=== PATIENT | female | born 1965 | race Two or more races ===

== ENCOUNTER 2020-10-17 08:08 | Emergency (ER) | payer OTHER ==
[~2020-10-17] VITALS: Ht 160 cm; Wt 68.5 kg
[2020-10-17] MEDS ORDERED: TOPROL XL50 M1 (08:28)
[2020-10-17] MEDS ORDERED: CRESTOR5 MG (08:28)
[2020-10-17] MEDS ORDERED: COZAAR50 MG (08:28)
[2020-10-17] MEDS ORDERED: ZITHROMAX500 MG PO (10:51)
[2020-10-17] MEDS ORDERED: TUSSIN DM SYRU118 ML PO (10:51)
[2020-10-17] MEDS ORDERED: TESSALON PERLE100 M1 PO (10:51)
== END 2020-10-17 11:21 | disposition home or self-care (01) ==
LOC: ER 08:08
DX: B34.9 Viral infection, unspecified (principal); Z03.818 Encounter for observation for suspected exposure to other biological agents ruled out

== ENCOUNTER 2021-05-21 19:08 | Emergency (ER) | payer OTHER ==
[~2021-05-21] VITALS: Ht 160 cm; Wt 71.7 kg
[~2021-05-21 19:08] MED LIST: COZAAR50 MG; CRESTOR5 MG; TESSALON PERLE100 M1 PO; TOPROL XL50 M1; TUSSIN DM SYRU118 ML PO; ZITHROMAX500 MG PO
== END 2021-05-21 23:14 | disposition home or self-care (01) ==
LOC: ER 19:08
DX: S83.92XA Sprain of unspecified site of left knee, initial encounter (principal); W01.0XXA Fall on same level from slipping, tripping and stumbling without subsequent striking against object, initial encounter; Y93.9 Activity, unspecified; Y92.019 Unspecified place in single-family (private) house as the place of occurrence of the external cause

== ENCOUNTER 2022-06-23 13:11 | Emergency (ER) | payer OTHER ==
[~2022-06-23] VITALS: Ht 160 cm; Wt 72.6 kg
[2022-06-23] MEDS ORDERED: NITROFURANTOIN100 MG PO (20:18)
== END 2022-06-23 20:34 | disposition home or self-care (01) ==
LOC: ER 13:11
DX: N39.0 Urinary tract infection, site not specified (principal); I10 Essential (primary) hypertension

== ENCOUNTER 2023-10-01 11:33 | Emergency (ER) | payer OTHER ==
[~2023-10-01] VITALS: Ht 160 cm; Wt 65.8 kg
[~2023-10-01 11:33] MED LIST changes: +NITROFURANTOIN100 MG PO
[2023-10-01] MEDS ORDERED: GUAIFENESIN 200 MG/10 ML BLIST.PACK PO ONE (13:30)
[2023-10-01] MEDS ORDERED: GUAIFENESIN/DEXTROMETHORPHAN 5ML BLIST.PACK PO ONE (13:35)
[2023-10-01 14:27] LABS: HEMATOCRIT 38.7 % (36.0-45.00); HEMOGLOBIN 13.3 g/dL (12.0-15.00); MEAN CELL VOLUME 89.4 fL (80.00-100.00); MEAN CORPUSCULAR HEMOGLOBIN 30.6 pg (27.00-32.0); MEAN CORPUSCULAR HGB CONC 34.3 g/dl (32.0-36.0); PLATELET COUNT 212 K/uL (150-450); RED BLOOD COUNT 4.33 M/uL (4.00-6.00); RED CELL DISTRIBUTION WIDTH 12.3 % (11.5-14.5)
== END 2023-10-01 14:56 ==
LOC: ER 11:34
PROVIDERS: General Practice
DX: R05.8 Other specified cough (principal); J45.909 Unspecified asthma, uncomplicated; E78.49 Other hyperlipidemia; I10 Essential (primary) hypertension; J32.9 Chronic sinusitis, unspecified; B34.9 Viral infection, unspecified; Z20.822 Contact with and (suspected) exposure to COVID-19